=== PATIENT | male | born 1955 | race Caucasian/White ===

== ENCOUNTER 2023-05-11 21:54 | Emergency (ER) | payer BC ==
[2023-05-11] MEDS ORDERED: Ketorolac 15 MG/ML SDV IM ONE (22:28)
[2023-05-11] MEDS ORDERED: Methocarbamol 500 MG Tab PO ONE (22:29)
== END 2023-05-11 23:50 | disposition home or self-care (01) ==
LOC: JP.ED 21:54
DX: M43.6 Torticollis (principal)
CPT/HCPCS: 96372; 99283; A9270; J1885; 99282